=== PATIENT | female | born 1985 | race Two or more races ===

== ENCOUNTER → 2024-10-05 | Outpatient (CLI) | payer MEDICAID, SELFPAY ==
[2024-10-05 11:19] LABS: HCG Qualitative,Urine Negative
== END | disposition home or self-care (01) ==
LOC: SLDO 10:25
PROVIDERS: Referring Provider Radiology Diagnostic Radiology; Visit Provider Radiology Diagnostic Radiology
DX: Z32.00 Encounter for pregnancy test, result unknown (principal)
CPT/HCPCS: 81025

== ENCOUNTER → 2024-10-08 | Outpatient (CLI) | payer MEDICAID, SELFPAY ==
--- NOTE | 2024-10-08 10:00 | XR_ITS ---
Examination: CT chest with intravenous contrast 2-D sagittal and coronal reconstructions Exam date and time: October 08, 2024 1022 hours INDICATIONS: Enlarged lymph nodes in the right axilla with discomfort this week CTDI:vol (mGy) 12.8 DLP: (mGycm) 412 Technique: Multiple axial sections of the thorax have been obtained. Sections have been obtained, 3 mm slice thickness. Mediastinal and lung density settings have been obtained. Intravenous contrast administered, 60 cc Isovue-370. 2-D sagittal, coronal images obtained. Low dose protocols were performed. One or more of the following dose reduction techniques were used; automated exposure control, adjustment of the mA and/or KV according to patient size, use of iterative reconstruction technique. Findings: Multiple subcentimeter thyroid nodules No thoracic aortic aneurysm dilatation or dissection No pulmonary artery emboli. No paratracheal tracheobronchial or bronchopulmonary adenopathy 2 mm pulmonary nodule right upper lobe image 1:30 No pneumonia or pulmonary edema Abnormal enlarged right axillary lymph nodes, including 25 mm, 18 mm IMPRESSION: Abnormally enlarged right axillary lymph nodes, recommend diagnostic mammography, bilateral breast sonography follow-up 2 mm pulmonary nodule right upper lobe, recommend follow-up
== END | disposition home or self-care (01) ==
DX: R59.0 Localized enlarged lymph nodes (principal); R91.1 Solitary pulmonary nodule
CPT/HCPCS: 71260; A4649; Q9967